=== PATIENT | female | born 1975 | race African-American/Black ===

== ENCOUNTER 2021-05-18 20:37 | Emergency (ER) | payer OTHER, SELFPAY ==
--- NOTE | ~2021-05-18 | MR_ITS ---
EXAMINATION: MR LUMBAR SPINE WITHOUT CONTRAST CLINICAL INFORMATION: Pain, urinary continence, and right leg weakness. COMPARISON: None TECHNIQUE: MRI of the lumbar spine was obtained using routine sequences without contrast. FINDINGS: The lumbar vertebral bodies maintain normal heights and alignment. There is moderate to severe disc height loss at L5-S1 with chronic fatty endplate changes. Mild disc height loss is seen at L4-L5. The distal spinal cord appears normal. The conus medullaris terminates normally at the L2 level. The visualized paraspinal muscles and intra-abdominal and pelvic contents are within normal limits. SPINAL LEVELS: L1-L2: No posterior disc abnormality. No spinal canal or neural foraminal stenosis. L2-L3: No posterior disc abnormality. No spinal canal or neural foraminal stenosis. L3-L4: Disc bulging with mild facet arthropathy. No spinal canal or neural foraminal stenosis. L4-L5: Disc bulging with mild facet arthropathy. Shallow central protrusion. Minimal encroachment on the neural foramina. No spinal canal stenosis. L5-S1: Disc bulging with mild facet arthropathy. No spinal canal stenosis. Mild right more than left neural foraminal stenosis. MR/MR lumbar spine wo con IMPRESSION: No spinal canal stenosis or definite nerve root compression identified. Significant disc height loss at L5-S1 with chronic degenerative endplate changes. Mild disc height loss seen at L4-L5.
[2021-05-18 22:08] VITALS: BP 125/63; PULSE 72; RESP 18; TEMP 36.6; O2SAT 100; BMI 33.5
--- NOTE | 2021-05-19 03:57 | ED_ITS ---
HPI - Back Pain/Injury General Chief Complaint: Back Pain/Injury Stated Complaint: rt leg pain Time Seen by Provider: 05/19/21 03:54 Source: patient Mode of arrival: ambulatory Limitations: no limitations History of Present Illness HPI Narrative: 45-year-old female came in for evaluation of low back pain. Patient was sent from [facility] for evaluation of low back pain and possible MRI of lumbar back. Patient been having low back pain for a year but over the past week is been progressively worsening, pain is radiating to the right lower extremities, pain is constant, dull aching pain, described as severe /10, pain is radiating to right lower extremity. patient also reported that since yesterday had to urinary incontinence, patient had sensation of urination but because the back pain and the leg weakness she could not make it to the bathroom. Patient declined any fever chills, no history of IV drug abuse. Patient fell 3 days ago because the back pain and right leg weakness Without back injury. Related Data Home Medications Medication Instructions Recorded Confirmed valacyclovir 500 mg tablet 500 mg PO BID 05/18/21 (Valtrex) Allergies Allergy/AdvReac Type Severity Reaction Status Date / Time penicillin V Allergy Mild hives Verified 05/18/21 22:07 Review of Systems Review of Systems: All other systems are reviewed and are negative Constitutional: Reports as per HPI and Reports no additional constitutional complaints Eyes: Reports as per HPI and Reports no additional eye complaints Reports system reviewed and no additional complaints, except as documented Cardiovascular: Reports as per HPI and Reports no additional cardiovascular complaints Respiratory: Reports as per HPI and Reports no additional respiratory complaints Gastrointestinal: Reports as per HPI and Reports no additional gastrointestinal complaints Genitourinary: Reports no additional female genitourinary complaints Musculoskeletal: Reports no additional musculoskeletal complaints Skin/Breast: Reports system reviewed and no additional complaints, except as docu Psychiatric: Reports no additional psychiatric complaints Endocrine: Reports no additional endocrine complaints Hematologic/Lymphatic: Reports no additional hematologic/lymphatic complaints Allergic/Immunologic: Reports no additional allergic/immunologic complaints Reports system reviewed and no additional complaints, except as documented and R eports Abnormal speech present [facility] Social History Social History Patient Tobacco Use Status: Never used Tobacco Advance Directives: No Advance Directives Information Provided: No Patient : No Physical Exam Vital Signs: Vital Signs: Last Vital Signs Temp 97.8 F 11/23/21 22:08 Pulse 72 05/18/21 22:08 Resp 18 05/18/21 22:08 BP 125/63 05/18/21 22:08 Pulse Ox 100 05/18/21 22:08 Body Mass Index 33.5 vital signs have been reviewed as appeared to be correct. Blood pressure normal. Heart rate normal. Respiration rate normal. Temperature normal. Oxygen saturation normal. Appearance: Alert. Oriented X3. No acute distress. Head: Normal external exam. Normocephalic. Atraumatic. No Back signs noted. No raccoon eyes noted Eyes: PERRLA. EOMI. Conjunctiva and sclera normal. Eyelids normal. ENT: TM's Normal. Pharynx normal. Uvula midline. Moist mucous membranes. No t rismus noted. No drooling noted. No muffled voice noted. Neck: Normal inspection. Neck supple. FROM. No adenopathy. Thyroid Normal. No meningeal signs. No neck mass noted. CVS: Normal heart rate and rhythm. Heart sound normal. No murmurs noted. Pulses normal throughout. Respiratory: No respiratory distress. Painless inspiration. Breath sounds normal. No wheezes/rales/rhonchi noted. Chest nontender. No accessory muscle usage noted or decreased air movement noted. Abdomen: Soft and nontender. Bowel sounds normal in all 4 quadrants. No distention noted. No organomegaly noted. No visible injury noted. Back: Diffuse lumbar spine tenderness, no rebound tenderness, no reproducible point of tenderness, no step-off, no deformity. Skin: Skin warm and dry. Normal skin color. Normal skin turgor. No rashes/lesions/lacerations noted. Extremities: No lower extremity edema. Extremities exhibit normal range of motion. Extremities nontender. Neuro: Oriented X 3. Cranial nerve exam: II-XII are grossly intact No motor deficit. Right lower extremities weakness unable to lift It of the bed. ( rectal exam was deferred by the patient to check for rectal tone and perianal sensation). Course Course Course Narrative: Assessment and plan. 45-year-old female with acute on chronic low back pain radiating to the right lower extremities with weakness of her right lower extremity, patient had 2 urinary incontinence yesterday. no history of IV drug abuse , no fever, making epidural abscess is not likely. Will obtain MRI in the morning/ pain management control. Case sign toe Dr. Hussein. Discharge Plan Discharge Clinical Impression: Lumbar radiculopathy Prescriptions: No Action valacyclovir [Valtrex] 500 mg tablet 500 mg PO BID RF: 0
[2021-05-19 04:24] LABS: Appearance Urine CLEAR; Color Urine YELLOW; Glucose Urine UA NEG (NEG); Leukocyte Esterase Urine NEG (NEG); Nitrite Urine NEG (NEG); Specific Gravity - Urine 1.025 (1.005-1.025); Urine Blood NEG (NEG); Urine Ketones NEG (NEG); Urine Protein NEG (NEG-TRACE)
[2021-05-19 04:26] VITALS: RESP 18
[2021-05-19 04:26] LABS: UPreg QC Valid YES; Urine Pregnancy NEGATIVE (NEGATIVE)
[2021-05-19 04:26] LABS: MANUAL DIFF FLAG NO
[2021-05-19] MEDS: Ketorolac Tromethamine 15 MG/ML VIAL 30 MG IVPUSH (04:26)
[2021-05-19] MEDS: Morphine Sulfate 2 MG/ML CARTRIDGE IVPUSH (04:26)
[2021-05-19 04:28] LABS: Hematocrit 34.4 % (37.0-47.0); Hemoglobin 11.3 g/dl (12.0-16.0); Imm Gran Abs Auto 0.01 X10*3/uL (0.00-0.03); Imm Gran Pct Auto 0.2 % (0.0-0.4); Lymphocytes Absolute Auto 1.5 X10*3/uL (1.2-4.9); Lymphocytes Percent Auto 30.2 % (20-40); Mean Corpuscular HGB Conc 32.8 g/dl (31.0-35.0); Mean Corpuscular Hemoglobin 27.9 pg (27.0-33.0); Mean Corpuscular Volume 84.9 fL (80.0-98.0); Mean Platelet Volume 9.6 fL (9.4-12.3); Monocytes Absolute Auto 0.6 X10*3/uL (0.1-1.2); Monocytes Percent Auto 11.7 % (2-11); Neutrophils Absolute Auto 2.9 x10*3/uL (2.0-8.3); Neutrophils Percent Auto 57.9 % (45-73); Platelet Count 307 X10*3/uL (160-400); Red Blood Count 4.05 X10*6/uL (4.20-5.50); White Blood Count 4.9 X10*3/uL (4.8-10.8)
[2021-05-19 04:44] LABS: Anion Gap 12 (12-20); Blood Urea Nitrogen 8 mg/dL (9-16); Calcium 9.4 mg/dL (8.4-10.2); Carbon Dioxide 24 mmol/L (22-29); Chloride 107 mmol/L (96-108); Creatinine Clr Calc Pharmacy 111.9; Estimated Glomerular Filt Rate > 60; Glucose Random 103 mg/dL (60-115); Lipase 73 U/L (8-78); Sodium 139 mmol/L (135-145)
[2021-05-19 06:39] VITALS: BP 121/64; PULSE 99; RESP 16; TEMP 36.5; O2SAT 98
--- NOTE | 2021-05-19 06:40 | PC.NURSE ---
PT stated that med relieved pain in the lower back, but she still has pain and stiffness down the right leg.
[2021-05-19 07:50] VITALS: BP 121/55; PULSE 93; RESP 16; O2SAT 98
[2021-05-19] MEDS: LORazepam 2 MG/ML VIAL 1 MG IVPUSH (09:36)
[2021-05-19 10:58] VITALS: BP 130/60; PULSE 98; RESP 16; TEMP 36.8; O2SAT 98
[2021-05-19] MEDS: Cyclobenzaprine HCl 10 MG TABLET PO (11:27)
[2021-05-19] MEDS: Ketorolac Tromethamine 15 MG/ML VIAL IVPUSH (11:28)
== END 2021-05-19 12:44 | disposition home or self-care (01) ==
PROVIDERS: Emergency Provider Emergency Medicine; PCP Internal Medicine
DX: M54.16 Radiculopathy, lumbar region (principal); M54.50 Low back pain, unspecified; R30.0 Dysuria; M62.81 Muscle weakness (generalized); Z79.899 Other long term (current) drug therapy
CPT/HCPCS: 36415; 72148; 80048; 81003; 81025; 83690; 85025; 96374; 96375; 96376; 99284; 99285; J1885; J2060; J2270

== ENCOUNTER 2021-12-23 14:00 | Outpatient (RCR) | payer OTHER, SELFPAY | END 2021-12-23 15:10 | disposition home or self-care (01) | LOC: HO.PTCHIC 14:00 | PROVIDERS: PCP Student in an Organized Health Care Education/Training Program; Visit Provider Internal Medicine Rheumatology | DX: M17.0 Bilateral primary osteoarthritis of knee (principal); M16.0 Bilateral primary osteoarthritis of hip | CPT/HCPCS: 97110; 97112; 97163; 97530 ==

== ENCOUNTER 2022-02-01 11:15 | Outpatient (REF) | payer OTHER, SELFPAY ==
--- NOTE | ~2022-02-01 | MR_ITS ---
EXAMINATION: MR BRAIN WITHOUT AND WITH CONTRAST CLINICAL INFORMATION: Ataxia. COMPARISON: None available. TECHNIQUE: Multiplanar, multisequence imaging of the brain was performed before and after the intravenous administration of 7.5 mL of Gadavist. FINDINGS: There is no acute infarction, mass, hemorrhage, or extra-axial collection. No abnormal or unexpected intracranial enhancement is seen. The ventricles, sulci, and basilar cisterns are normal in size and configuration. The thalami, basal ganglia, and brainstem appear normal. The posterior fossa structures appear normal. The flow voids of the major intracranial arteries appear intact. The bones and extracranial soft tissues are within normal limits. MR/MR head/brain wo/w con IMPRESSION: No mass lesion, acute infarction, or abnormal intracranial enhancement.
== END 2022-02-01 11:16 | disposition home or self-care (01) ==
LOC: HO.MRI 11:15
PROVIDERS: Visit Provider Psychiatry & Neurology Neurology
DX: R27.0 Ataxia, unspecified (principal)
CPT/HCPCS: 70553; A9585

== ENCOUNTER 2022-03-09 08:11 | Outpatient (REF) | payer OTHER, SELFPAY ==
--- NOTE | ~2022-03-09 | MR_ITS ---
EXAMINATION: MRI OF THE CERVICAL SPINE WITHOUT AND WITH CONTRAST MRI THORACIC SPINE WITHOUT AND WITH CONTRAST CLINICAL INFORMATION: 46-year-old with ataxia. COMPARISON: None. TECHNIQUE: Multiplanar multisequence MR imaging of the cervical spine was done prior to and following the intravenous administration of 7.5 mL of Gadavist. Multiplanar multisequence MR imaging of the thoracic spine was done prior to and following the intravenous administration of 7.5 mL of Gadavist. (Total of 7.5 mL injected for both exams). MR CERVICAL FINDINGS: ALIGNMENT: There is lordotic reversal centered at C5-C6, which is nonspecific, but could be related to muscle spasm. No spondylolisthesis or retrolisthesis. CRANIOCERVICAL JUNCTION/C1-C2 ARTICULATIONS: Intact and aligned. VISUALIZED INTRACRANIAL STRUCTURES: Within normal limits. VERTEBRAL BODIES: Normal height. DISC SPACES AND ENDPLATES: Moderate degrees of intervertebral disc space height loss noted between C3-C4 and C5-C6 inclusive, with multilevel intradiscal degenerative signal changes and minor degrees of anterior marginal endplate spurring at these levels. Otherwise endplates appear intact. BONE MARROW: No significant marrow-replacing process or bone marrow edema and no abnormal bone marrow enhancement. C2-C3: No disc herniation or canal stenosis. Minor left facet arthropathy. No foraminal narrowing. C3-C4: Broad-based disc osteophyte complex noted, with mild flattening of the ventral dural sac without cord impingement. Mild spinal canal stenosis is noted. There is uncovertebral spurring bilaterally without significant neural foraminal stenosis. C4-C5: Broad-based disc osteophyte complex noted, with an enhancing central annular fissure, with [id number] flattening of the ventral dural sac slightly asymmetric to the right without cord impingement. Mild spinal canal stenosis is noted. Uncinate process spurring noted bilaterally without significant neural foraminal stenosis. C5-C6: Central to left paramedian extruded disc herniation with cephalad and caudal migration is noted, with moderate ventral cord impingement and moderate central spinal canal stenosis. Mild bilateral uncinate process spurring noted with no significant neural foraminal stenosis. C6-C7: Small central to left paramedian disc protrusion with minimal indentation of the ventral thecal sac without cord impingement or canal stenosis. No significant degenerative joint disease or neural foraminal stenosis. C7-T1: Normal disc contour. No facet arthrosis, canal or neural foraminal stenosis. T1-T2: Normal disc contours. No significant degenerative joint disease, canal or neural foraminal stenosis. SPINAL CORD: The cervical and visualized upper thoracic spinal cord is normal in signal intensity throughout, without focal lesion, edema or syrinx and there is no abnormal spinal cord or leptomeningeal enhancement. EXTRACRANIAL SOFT TISSUES: Mild degree of thyromegaly suspected. No discrete thyroid nodules are identified. Correlate with physical examination and consider thyroid ultrasound to further assess. MR/MR cervical spine wo/w con IMPRESSION: 1. Lordotic reversal centered at C5-C6 with multilevel discogenic degenerative changes and spondylosis between C3-C4 and C5-C6 inclusive. 2. Central to left paramedian extruded disc herniation at C5-C6, with ventral cord impingement as described above and moderate central spinal canal stenosis without cord edema or abnormal enhancement. 3. Disc osteophyte complexes at C3-C4 and C4-C5 with an enhancing central annular fissure at C4-C5 without cord impingement, with mild spinal canal stenosis at these levels. 4. No abnormal spinal cord signal or enhancement and no abnormal leptomeningeal enhancement. MR THORACIC FINDINGS: ALIGNMENT: The thoracic spine is anatomically aligned. VERTEBRAL BODIES AND BONE MARROW: Vertebral body heights are well maintained. Bone marrow signal intensity appears within normal limits. There is no abnormal bone marrow enhancement. DISC SPACES AND ENDPLATES: [id number] intervertebral disc space height loss and disc desiccation are noted at T4-T5 consistent with disc degenerative change. Schmorl's nodes and mild disc desiccation at T8-T9 are noted with mild disc space height loss. Remaining thoracic intervertebral disc space heights and signal are well maintained. No significant thoracic spondylosis. No abnormal intradiscal or endplate marrow enhancement. PARASPINAL SOFT TISSUES: The paravertebral soft tissues are unremarkable. Small simple-appearing parapelvic cyst in the upper pole of the right kidney. Limited evaluation.?No specific follow up recommended based on the current ACR Best Practice Guidelines.? SPINAL CORD: The thoracic spinal cord is normal in morphology, caliber and signal intensity throughout, without focal lesion, edema or syrinx and there is no abnormal spinal cord or leptomeningeal enhancement. The conus terminates at the L2 level. SPINAL LEVELS: Aside from a tiny central disc protrusion suspected at T4-T5 and some ligamentum flavum thickening and facet arthropathy on the left at T8-T9, no other disc herniations are identified and there is no other significant facet arthropathy, canal or neural foraminal stenosis throughout the thoracic spine. No cord impingement is identified. IMPRESSION: 1. Discogenic degenerative changes at T4-T5 and at T8-T9 with a tiny central disc protrusion at T4-T5 without cord impingement or canal stenosis. Ligamentum flavum thickening and facet arthropathy on the left at T8-T9 without canal or significant neural foraminal stenosis. 2. Normal appearance to the thoracic spinal cord with no evidence for spinal cord lesion or abnormal enhancement and no abnormal leptomeningeal enhancement.
== END 2022-03-09 08:12 | disposition home or self-care (01) ==
LOC: HO.MRI 08:11
PROVIDERS: Visit Provider Psychiatry & Neurology Neurology
DX: R27.0 Ataxia, unspecified (principal)
CPT/HCPCS: 72156; 72157; A9585